=== PATIENT | male | born 1965 | race Caucasian/White ===

== ENCOUNTER 2019-04-30 05:36 | Day surgery (SDC) | payer OTHER ==
[~2019-04-30] VITALS: Ht 188 cm; Wt 132.0 kg
[2019-04-30 10:38] VITALS: BP 135/82
[2019-04-30 15:40] VITALS: BP 135/82
== END 2019-04-30 16:00 | disposition home or self-care (01) ==
LOC: OR 05:36 → TBA 05:37 → OR 13:48
DX: K42.9 Umbilical hernia without obstruction or gangrene (principal); G47.30 Sleep apnea, unspecified; F17.220 Nicotine dependence, chewing tobacco, uncomplicated; Z98.52 Vasectomy status; Z98.890 Other specified postprocedural states
CPT/HCPCS: 50010; 50101; 50249; 50386; 50555; 50980; 50984; 52265; 52266; 54022; 54118; 56526; 56530; 57092; 62110; 62900; 70005